=== PATIENT | male | born 1975 | race Caucasian/White ===

== ENCOUNTER 2018-04-22 09:12 | Emergency (ER) | payer OTHER ==
[~2018-04-22] VITALS: Ht 182.9 cm; Wt 149.3 kg
[2018-04-22] MEDS ORDERED: LISINOPRIL20 MG PO (09:20)
[2018-04-22] MEDS ORDERED: LOPRESSOR100 M1 PO (09:20)
[2018-04-22 09:50] LABS: ABSOLUTE BASOPHILS 0.1 thou/uL (0.0-0.2); ABSOLUTE LYMPHOCYTES 1.6 thou/uL (0.8-5.3); ABSOLUTE MONOCYTES 0.9 thou/uL (0.0-1.2); ABSOLUTE NEUTROPHILS 9.9 thou/uL (1.6-8.1); BASOPHILS 0.4 %; EOSINOPHILS 0.1 %; HEMATOCRIT 45.7 % (42.0-52.0); HEMOGLOBIN 15.6 gm/dL (14.0-18.0); LYMPHOCYTES 12.6 %; MCH 31.2 pg (26.0-34.0); MCV 91.7 fL (80.0-100.0); MONOCYTES 7.2 %; MPV 9.3 fl. (7.2-11.1); NUCLEATED RBCS 0 /100WBC; PLATELET COUNT* 229 thou/uL (150-400); POLYS 79.7 %; RBC 4.99 mil/uL (4.50-6.00); RDW-CV 13.2 % (10.5-14.5); WBC 12.4 thou/uL (4.0-11.0)
[2018-04-22 10:10] LABS: ANION GAP 10 mmol/L (7-16); BUN 18 mg/dL (7-18); CALCIUM 9.6 mg/dL (8.5-10.1); CHLORIDE 103 mmol/L (98-107); CO2 27 mmol/L (21-32); CREATININE 1.1 mg/dL (0.6-1.3); GLUCOSE 137 mg/dL (70-99); POTASSIUM 3.6 mmol/L (3.5-5.1); SODIUM 140 mmol/L (136-145)
[2018-04-22 10:17] LABS: ALBUMIN 4.1 g/dL (3.4-5.0); ALKALINE PHOSPHATASE 51 U/L (46-116); LIPASE 88 U/L (73-393); SGOT 17 U/L (15-37); SGPT 71 U/L (30-65); TOTAL BILIRUBIN 0.5 mg/dL (<0.1-1.0); TROPONIN-I LEVEL <0.06 ng/mL (<0.06)
[2018-04-22 10:52] LABS: URINE BILIRUBIN NEGATIVE (Negative); URINE BLOOD 3+ (Negative); URINE CLARITY CLEAR; URINE COLOR YELLOW; URINE GLUCOSE-RANDOM NEGATIVE (Negative); URINE KETONES 1+ (Negative); URINE LEUKOCYTES-REFLEX NEGATIVE (Negative); URINE NITRITE-REFLEX NEGATIVE (Negative); URINE PROTEIN 1+ (Negative); URINE SPECIFIC GRAVITY >= 1.030 (1.005-1.030); URINE UROBILINOGEN 0.2 E.U./dl (0.2-1.0)
[2018-04-22 10:56] LABS: BACTERIA-REFLEX 1-9 Few /HPF (None Seen); CASTS None Seen /LPF (None Seen); MUCUS 4-6 Moderate strn/LPF (None Seen); SQUAMOUS 0-3 Few /LPF (0-3); URINE WBC-REFLEX 0-5 Rare /HPF (0-5)
[2018-04-22 10:57] LABS: CALCIUM OXALATE 4-10 Moderate /LPF (None Seen); HYALINE CASTS 0-3 Few /LPF (None Seen)
[2018-04-22] MEDS ORDERED: FLOMAX0.4 MG PO (12:29)
[2018-04-22] MEDS ORDERED: NORCO 5-325 TA1 EACH PO (12:29)
[2018-04-22] MEDS ORDERED: ZOFRAN ODT4 MG PO (12:29)
[2018-04-22 12:41] VITALS: BP 129/72
--- NOTE | 2018-04-22 16:22 | EKG ---
[place] [address] ELECTROCARDIOGRAM REPORT Name: DARRELL PETERSON Room: [facility]SKenny#: [id number] Admission: 04/22/18 Attend Phys: Discharge: 04/22/18 Date of : 73 Report #: [id number] THIS REPORT FOR: //name// [facility] ED Test Date: 2018-04-22 Test Time: 09:34:40 Pat Name: DARRELL PETERSON Department: Room: Gender: M Software Business Analyst: Dorys QUINTERO : 1975 Requested By: Mauricio Renner Order Number: [id number] MD: Joe Frances Measurements Intervals [place] Rate: 81 P: 25 FL: 137 QRS: 70 QRSD: 96 T: 26 QT: 375 QTc: 436 Interpretive Statements Sinus rhythm Abnormal inferior Q waves Baseline wander in lead(s) V3 No previous ECG available for comparison Electronically Signed On 04-22-2018 16:22:31 [employer] by Joe Frances [email or web address] <ELECTRONICALLY SIGNED> By: Joe Frances MD, [facility] 04/22/18 1622 0934 0934 Joe Frances MD, FACC /EPI
== END 2018-04-22 12:43 | disposition home or self-care (01) ==
LOC: M.ERS 09:12
PROVIDERS: Emergency Medicine
DX: N20.1 Calculus of ureter (principal); R11.2 Nausea with vomiting, unspecified; I10 Essential (primary) hypertension